=== PATIENT | male | born 1945 | race Caucasian/White ===

== ENCOUNTER 2017-08-13 10:06 | Emergency (ER) | payer OTHER ==
[~2017-08-13] VITALS: Ht 177.8 cm; Wt 122.5 kg
[2017-08-13 11:24] VITALS: BP 186/92
== END 2017-08-13 11:25 | disposition home or self-care (01) ==
LOC: ER 10:06
DX: S61.412A Laceration without foreign body of left hand, initial encounter (principal); W29.0XXA Contact with powered kitchen appliance, initial encounter; Y93.G1 Activity, food preparation and clean up; Y92.89 Other specified places as the place of occurrence of the external cause; Y99.8 Other external cause status

== ENCOUNTER → 2019-05-14 | Outpatient (CLI) | payer OTHER | LOC: ULTRA 16:50 | DX: M79.604 Pain in right leg (principal); R60.0 Localized edema ==

== ENCOUNTER → 2019-07-20 | Outpatient (CLI) | payer OTHER | LOC: ULTRA 10:20 | DX: R20.2 Paresthesia of skin (principal); R09.89 Other specified symptoms and signs involving the circulatory and respiratory systems ==

== ENCOUNTER → 2021-04-16 | Outpatient (CLI) | payer OTHER | LOC: CAT 15:37 | PROVIDERS: ATTEND Family Medicine | DX: Z13.6 Encounter for screening for cardiovascular disorders (principal); I25.10 Atherosclerotic heart disease of native coronary artery without angina pectoris ==

== ENCOUNTER → 2021-04-27 | Outpatient (CLI) | payer OTHER | LOC: SJCVC 13:25 | PROVIDERS: ATTEND Internal Medicine Cardiovascular Disease | DX: I25.10 Atherosclerotic heart disease of native coronary artery without angina pectoris (principal); I25.84 Coronary atherosclerosis due to calcified coronary lesion; R01.1 Cardiac murmur, unspecified; E78.00 Pure hypercholesterolemia, unspecified; E11.9 Type 2 diabetes mellitus without complications; Z87.891 Personal history of nicotine dependence; Z79.84 Long term (current) use of oral hypoglycemic drugs; Z79.899 Other long term (current) drug therapy ==

== ENCOUNTER → 2021-05-04 | Outpatient (CLI) | payer OTHER | LOC: SJCVCIMAG 09:41 | PROVIDERS: ATTEND Internal Medicine Cardiovascular Disease | DX: I07.1 Rheumatic tricuspid insufficiency (principal); I25.10 Atherosclerotic heart disease of native coronary artery without angina pectoris; E78.00 Pure hypercholesterolemia, unspecified; E11.9 Type 2 diabetes mellitus without complications; R93.1 Abnormal findings on diagnostic imaging of heart and coronary circulation; E78.5 Hyperlipidemia, unspecified; Z79.84 Long term (current) use of oral hypoglycemic drugs; Z79.899 Other long term (current) drug therapy; Z87.891 Personal history of nicotine dependence; Z72.89 Other problems related to lifestyle ==

== ENCOUNTER → 2021-05-13 | Outpatient (CLI) | payer OTHER ==
[~2021-05-13] VITALS: Ht 185.4 cm; Wt 127.0 kg
[~2021-05-13] MED LIST: ASA81BEC PO; COZAAR 25 MG TA25 M1 PO; CRESTOR10 MG PO; MELOXICAM15 MG PO; METFORMIN HCL500 M3 PO; NEURONTIN 300M300 M2 PO; SUPER THERAVIT1 EACH PO; ZYRTEC10 M5 PO
[2021-05-13 08:41] VITALS: BP 130/67
--- NOTE | 2021-05-13 13:24 | CATHLAB ---
[facility] [place] [address] INVASIVE PROCEDURE REPORT Name: JULIO C WYNNE [id number] Admission: 05/13/21 Attend Phys: Tristian Herrmann MD Discharge: Date of : 47 Report #: [id number] THIS REPORT FOR: cc: Sen Mendez James A. DO Park, Jin S. 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 A PINNACLE 4FR Sheath #[id number] sheath was inserted into the RFA^. Coronary angiography was performed using coronary diagnostic catheters. The right coronary system was accessed and visualized with a JR4 catheter. The left coronary system was accessed and visualized with a JL4 catheter. The left ventricle was accessed and visualized with a JR4 catheter. Hemostasis was obtained with manual pressure following sheath removal without any complications. There was no hematoma. Intraoperative Conscious Sedation Sedation start time: 10:51 Case end Time: 11:14 Fentanyl 50 mcg Versed 1 mg [facility] [address] [place] [address] INVASIVE PROCEDURE REPORT Name: RICCIJULIO C ALFREDO Room #: [facility] [id number] Admission: 05/13/21 Attend Phys: Tristian Herrmann MD Discharge: Date of : 47 Report #: [id number] Fluoro Time: 2.58 minutes Dose: DAP 70440.00 cGycm2 1152 mGy Contrast Type and Amount: Omnipaque 35 ml Coronary Angiography The patient's coronary anatomy is right dominant. Diagnostic Cath Left Main The left main artery is a large-caliber vessel, appears angiographically normal. LAD The LAD is a moderate-sized caliber vessel, traverses the anterior wall and wraps around the apex. There is mild diffuse calcification in the proximal segment. There is a mild to moderate discrete stenosis in the proximal segment, 30 to 40%. Diagonal 1 This is a small caliber vessel, with mild disease. Diagonal 2 This is a small to moderate-sized caliber vessel, with a borderline stenosis of 70% in the proximal segment. Recommend medical therapy. Circumflex There is mild disease in the proximal segment, 30%. OM1 This is a moderate-sized caliber vessel, courses down the lateral wall down to the apex. There is mild disease in the proximal segment, 30%. Right Coronary The RCA is a dominant vessel with mild diffuse calcifications in the proximal and distal segments. There is mild diffuse stenosis in the proximal segment, 30%. R PDA This is a moderate-sized caliber vessel with a moderate stenosis in the proximal segment, 50%. RPLV This is a small to moderate-sized caliber vessel, patent with no flow-limiting obstructions. Left Ventriculography Left Ventriculography was not performed. Ejection Fraction was 55-60% based off patient's Nuclear Cardiac Stress Test. An LVEDP was measured and there is no gradient across the outflow tract. Hemodynamics The aortic pressure is 143/71 mmHg with a mean of 115 mmHg. The left ventricular pressure is 166/13 mmHg with a mean of mmHg. The left ventricular end diastolic pressure is 26 mmHg. Conclusion 1. 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 2. There is an intermediate stenosis in the second diagonal artery, recommend medical therapy. 3. There is moderate stenosis in the proximal PDA. 4. There is normal LV systolic function. 5. Recommend guideline directed medical therapy. <ELECTRONICALLY SIGNED> By: Tristian Herrmann MD 05/13/21 1324 1324 1324 Tristian Herrmann MD /INF
== END | disposition home or self-care (01) ==
LOC: CATH 08:02
PROVIDERS: ATTEND Internal Medicine Cardiovascular Disease
DX: R94.39 Abnormal result of other cardiovascular function study (principal); I25.10 Atherosclerotic heart disease of native coronary artery without angina pectoris; I10 Essential (primary) hypertension; E78.00 Pure hypercholesterolemia, unspecified; E11.9 Type 2 diabetes mellitus without complications; R06.00 Dyspnea, unspecified; Z98.890 Other specified postprocedural states; Z79.899 Other long term (current) drug therapy; Z82.49 Family history of ischemic heart disease and other diseases of the circulatory system; Z87.891 Personal history of nicotine dependence; Z79.82 Long term (current) use of aspirin

== ENCOUNTER → 2021-06-01 | Outpatient (CLI) | payer OTHER | LOC: SJCVCIMAG 11:47 | PROVIDERS: ATTEND Internal Medicine Cardiovascular Disease | DX: I65.23 Occlusion and stenosis of bilateral carotid arteries (principal) ==

== ENCOUNTER → 2021-06-05 | Outpatient (CLI) | payer OTHER | LOC: MRI 06-04 16:25 | PROVIDERS: ATTEND Family Medicine | DX: M47.816 Spondylosis without myelopathy or radiculopathy, lumbar region (principal); M48.061 Spinal stenosis, lumbar region without neurogenic claudication; M48.07 Spinal stenosis, lumbosacral region; M54.40 Lumbago with sciatica, unspecified side ==

== ENCOUNTER → 2021-06-10 | Outpatient (CLI) | payer OTHER | LOC: SJCVC 09:06 | PROVIDERS: ATTEND Nuclear Medicine Nuclear Cardiology | DX: I77.9 Disorder of arteries and arterioles, unspecified (principal); I25.10 Atherosclerotic heart disease of native coronary artery without angina pectoris; I10 Essential (primary) hypertension; E78.00 Pure hypercholesterolemia, unspecified; E11.9 Type 2 diabetes mellitus without complications; E78.5 Hyperlipidemia, unspecified; Z87.891 Personal history of nicotine dependence; Z72.89 Other problems related to lifestyle; Z79.82 Long term (current) use of aspirin; Z79.899 Other long term (current) drug therapy; Z79.84 Long term (current) use of oral hypoglycemic drugs; Z95.818 Presence of other cardiac implants and grafts ==

== ENCOUNTER → 2021-06-22 | Outpatient (CLI) | payer OTHER ==
[~2021-06-22] VITALS: Ht 185.4 cm; Wt 127.0 kg
[~2021-06-22] MED LIST changes: +TAMSULOSIN HCL0.4 MG PO
[2021-06-22 11:00] VITALS: BP 143/68
== END | disposition home or self-care (01) ==
LOC: CATH 07:31
PROVIDERS: ATTEND Nuclear Medicine Nuclear Cardiology
DX: I65.23 Occlusion and stenosis of bilateral carotid arteries (principal); I70.1 Atherosclerosis of renal artery; I10 Essential (primary) hypertension; I25.10 Atherosclerotic heart disease of native coronary artery without angina pectoris; E78.00 Pure hypercholesterolemia, unspecified; Z98.890 Other specified postprocedural states; Z79.899 Other long term (current) drug therapy; Z82.49 Family history of ischemic heart disease and other diseases of the circulatory system; Z87.891 Personal history of nicotine dependence; Z90.49 Acquired absence of other specified parts of digestive tract